=== PATIENT | female | born 1960 | race Caucasian/White ===

== ENCOUNTER 2020-06-14 04:46 | Emergency (ER) | payer OTHER ==
[~2020-06-14] VITALS: Ht 170.2 cm; Wt 89.4 kg
[2020-06-14] MEDS ORDERED: ATENOLOL 100MG100 MG PO (05:33)
[2020-06-14] MEDS ORDERED: LEXAPRO20 MG PO (05:34)
[2020-06-14] MEDS ORDERED: XANAX 0.5 MG0.5 M1 PO (05:34)
[2020-06-14] MEDS ORDERED: KLOR-CON M2020 MEQ PO (05:34)
[2020-06-14] MEDS ORDERED: LEVO-T25 MCG PO (05:34)
[2020-06-14] MEDS ORDERED: NORCO 10-325 T1 EACH PO (05:35)
[2020-06-14 05:41] LABS: ABSOLUTE NEUTROPHILS 8.7 thou/uL (1.4-8.2); BASOPHILS 0.7 % (0.0-2.0); EOSINOPHILS 0.4 % (0.0-3.0); HEMATOCRIT 42.1 % (37.0-47.0); LYMPHOCYTES 20.5 % (24.0-44.0); MCH 30.8 pg (26.0-34.0); MCHC 33.3 g/dL (28.0-37.0); MCV 92.7 fL (80.0-100.0); MONOCYTES 4.2 % (1.0-8.0); PLATELET COUNT 487 thou/uL (150-400); POLYS 74.2 % (36.0-66.0); RBC 4.55 mil/uL (4.20-5.00); RDW 17.7 % (10.5-14.5); WBC 11.7 thou/uL (4.0-11.0)
[2020-06-14 05:46] LABS: CALCIUM 9.9 mg/dL (8.5-10.1); POTASSIUM 3.7 mmol/L (3.5-5.1)
[2020-06-14 05:52] LABS: ALBUMIN 4.3 g/dL (3.4-5.0); TOTAL BILIRUBIN 0.4 mg/dL (0.2-1.0)
[2020-06-14 07:37] LABS: URINE BILIRUBIN NEGATIVE (Negative); URINE BLOOD NEGATIVE (Negative); URINE CLARITY CLEAR; URINE COLOR YELLOW; URINE GLUCOSE-RANDOM* NEGATIVE (Negative); URINE KETONES TRACE (Negative); URINE LEUKOCYTES-REFLEX TRACE (Negative); URINE NITRITE-REFLEX NEGATIVE (Negative); URINE PROTEIN (DIPSTICK) TRACE (Negative); URINE SPECIFIC GRAVITY >= 1.030 (1.005-1.035); URINE UROBILINOGEN 0.2 E.U./dl (0.2-1.0)
[2020-06-14] MEDS ORDERED: DOXYCYCLINE 10100 MG PO (08:03)
[2020-06-14 08:07] VITALS: BP 126/85
== END 2020-06-14 08:15 | disposition still patient (30) ==
LOC: ER 04:46
PROVIDERS: Emergency Medicine
DX: I88.0 Nonspecific mesenteric lymphadenitis (principal); R10.31 Right lower quadrant pain; Z79.899 Other long term (current) drug therapy; Z88.2 Allergy status to sulfonamides; Z88.1 Allergy status to other antibiotic agents; Z88.8 Allergy status to other drugs, medicaments and biological substances